=== PATIENT | female | born 1985 | race Caucasian/White ===

== ENCOUNTER → 2018-08-26 08:23 | Outpatient (CLI) | payer OTHER, SELFPAY | PROVIDERS: Visit Provider Physician Assistant | DX: R68.89 Other general symptoms and signs (principal) | CPT/HCPCS: 87400 ==

== ENCOUNTER → 2020-04-13 08:09 | Outpatient (CLI) | payer OTHER, SELFPAY ==
[2020-04-13 11:02] LABS: Hematocrit 42.8 % (36-46); Hemoglobin 14.5 g/dL (12.0-16.0); Mean Corpuscular HGB Conc 33.9 % (30-36); Mean Corpuscular Hemoglobin 30.1 PG (26-34); Mean Corpuscular Volume 88.8 fL (80-100); Red Blood Cell Count 4.82 X10^6/uL (4.0-5.2); Red Cell Distribution Width 13.6 % (11.6-14.8); White Blood Cell Count 5.8 X10^3/uL (4.5-11.0)
[2020-04-13 11:20] LABS: Alanine Aminotransferase 40 IU/L (<35); Albumin 4.5 g/dL (3.5-5.0); Albumin Globulin Ratio 1.4 (1.0-2.8); Alkaline Phosphatase 62 U/L (38-126); Aspartate Aminotransferase 32 IU/L (14-36); BUN Creatinine Ratio 18.7 (6-22); Bilirubin Total 0.8 mg/dL (0.2-1.3); Blood Urea Nitrogen 14 mg/dL (7-17); Carbon Dioxide 29 mmol/L (22-32); Chloride 103 mmol/L (98-107); Cholesterol 171 mg/dL (140-199); Estimated Glomerular Filt Rate > 60.0 mL/min (>60); Globulin 3.2 g/dL (1.7-4.1); Glucose 84 mg/dL (70-100); HDL Cholesterol 55 mg/dL (40-60); HEMOLYSIS 33 (0-50); LDL Cholesterol Calculated 100 mg/dL (<100); Potassium 4.3 mmol/L (3.4-5.1); Sodium 138 mmol/L (137-145); Total Protein 7.7 g/dL (6.3-8.2); Triglycerides 80 mg/dL (35-150)
[2020-04-13 11:30] LABS: Platelet Count 217 X10^3/uL (150-400)
== END ==
PROVIDERS: PCP Nurse Practitioner Family; Referring Provider Nurse Practitioner Family; Visit Provider Nurse Practitioner Family
DX: Z00.00 Encounter for general adult medical examination without abnormal findings (principal); Z13.6 Encounter for screening for cardiovascular disorders
CPT/HCPCS: 36415; 80053; 80061; 85027

== ENCOUNTER 2020-04-17 07:05 | Emergency (ER) | payer OTHER, SELFPAY ==
--- NOTE | 2020-04-17 07:20 | DI.RAD.S_ITS ---
PROCEDURE: XR ANKLE LT MIN 3V INDICATIONS: twisted ankle TECHNIQUE: 3 views of the ankle were acquired. COMPARISON: M[facility]ed [facility], CR, XR ANKLE RT MIN 3V, 04/17/2020, 7:44. FINDINGS: Bones: No fractures or dislocations. Ankle mortise is normally aligned. No suspicious bony lesions. The talar dome demonstrates no pj abnormality. Incidental note is made of an enthesophyte at the Achilles insertion. Soft tissues: No tibiotalar joint effusion. Achilles tendon appears normal. IMPRESSION: No significant plain film abnormality is seen. Dictated by: Ander Hannah M.D. on 04/17/2020 at 7:19 Approved by: Ander Hannah M.D. on 04/17/2020 at 7:20
[2020-04-17 07:23] VITALS: BP 152/100; PULSE 83; RESP 18; TEMP 36.8; O2SAT 97
--- NOTE | 2020-04-17 07:37 | ED_ITS ---
HPI - Extremity Injury (Lower) General Chief Complaint: Extremity Injury, Lower Stated Complaint: suspects fractured ankles Time Seen by Provider: 04/17/20 07:34 Source: patient Mode of arrival: Family Vehicle Limitations: no limitations History of Present Illness HPI Narrative: Otherwise healthy 34-year-old woman presents after jumping off an approximately 1-1/2 foot ledge last night at 9:00 p.m. and suffering inversion ankle injuries bilaterally. She did have pain initially but was able to walk assumed that she would feel better in the morning but when she got up this morning she found that she was not able to put any pressure at all on her left foot and the right was significantly painful. Minor swelling bilaterally. She complains of no ankle or hip pain and no additional trauma complaints. She rece ntly has had no fevers, cough, chills, dyspnea, cough, abdominal pain, diarrhea, vomiting, dysuria. Related Data Home Medications Medication Instructions Recorded Confirmed No Known Home Medications 04/02/20 04/02/20 Previous Rx's Medication Instructions Recorded ciclopirox 8 % topical solution 1 applictn TOP BEDTIME 28 Days 04/02/20 #6.6 ml Allergies Allergy/AdvReac Type Severity Reaction Status Date / Time No Known Drug Allergies Allergy Verified 04/17/20 07:21 Review of Systems Review of Systems Narrative: Remainder of review of systems including constitutional, ENT, cardiovascular, respiratory, GI, , musculoskeletal, skin, neurologic and psychiatric systems reviewed and are unremarkable except as noted in HPI. Patient History Medical History Allergies (~1999) Onychomycosis Surgical History Anesthesia [place] teeth removed (~2001) Family History Father Cancer Diabetes mellitus Mother Cancer Grandfather Stroke Grandmother Diabetes mellitus Grandfather Cancer Grandmother Cancer Family/Other Asthma Allergies Social History Smoking Status: Never smoker second hand exposure: No alcohol intake: current (a couple a week) substance use type: marijuana (smoke, a few times a week) Smoking Status: Never smoker alcohol intake frequency: 0-2 drinks per day Substance Use Type: marijuana Exam Narrative Exam Narrative: General: Alert appropriate in no acute distress Respiratory: Able to speak in full sentences, no obvious respiratory distress Skin: No obvious rashes, warm and dry Neurologic: Grossly intact no obvious asymmetries or abnormalities Psych, appropriate insight and affect, cooperative Extremities: Left ankle with point tenderness on the medial malleoli, mild edema, no hematoma, bruising contusions or gross deformity. Right ankle with point tenderness on the lateral malleolus mild edema, no hematoma, bruising contusions or gross deformity. Initial Vital Signs Initial Vital Signs: Vital Signs Temperature 98.3 F 04/17/20 07:23 Pulse Rate 83 04/17/20 07:23 Respiratory Rate 18 04/17/20 07:23 Blood Pressure 152/100 H 04/17/20 07:23 Pulse Oximetry 97 04/17/20 07:23 Procedures Orthopedic Splinting/Casting Right ankle: Side: right Lower Extremity Injury Location: ankle Lower Extremity Immobilizer: stirrup splint and [place] wrap Other Orthopedic Equipment: walker Post splinting neuro exam: intact Post splinting vascular exam: intact Placed by: Provider Left ankle: Side: left Lower Extremity Injury Location: ankle Lower Extremity Immobilizer: stirrup splint and Aureliano wrap Other Orthopedic Equipment: walker Post splinting neuro exam: intact Post splinting vascular exam: intact Placed by: Provider Course Orders Ordered: ED Orders 04/17/20 07:20 XR ankle LT min 3V Stat 04/17/20 07:42 XR ankle RT min 3V Stat Discontinued Medications Acetaminophen (Acetaminophen 325 Mg Tablet) 325 mg PO NOW ONE Stop: 04/17/20 07:55 Last Admin: 04/17/20 07:59 Dose: 325 mg Documented by: Ibuprofen (Ibuprofen 400 Mg Tablet) 400 mg PO NOW ONE Stop: 04/17/20 07:55 Last Admin: 04/17/20 07:59 Dose: 400 mg Documented by: Vital Signs Vital signs: Vital Signs - 8 hr 04/17/20 07:23 Temperature 98.3 F Pulse Rate 83 Respiratory Rate 18 Blood Pressure 152/100 H Pulse Oximetry 97 MDM - Extremity Injury (Lower) Medical Records Attestation: I reviewed the patient's medical records. Imaging Data Bilateral ankle x-rays: Attestation: I personally reviewed and interpreted this imaging study as follows: My Impression: No acute bony injury to either ankle, minimal effusions. MDM Narrative Medical decision making narrative: 34-year-old woman who jumped off a ledge twisted both ankles hurting more after 12 hours. No evidence of fractures on x- rays. Will contact her if radiology has a different interpretation once they have had a chance to look at the films. No point tenderness over the heel for either foot to suggest any calcaneal injury. Wraps are applied and she is given a walker to help with stability and discharged home safely. Discharge Plan Departure Patient Disposition: Home Clinical Impression: Ankle sprain and strain Instructions: DI for Ankle Sprain Activity Restrictions/Additional Instructions: Thank you for coming in today I am so sorry you hurt both ankles at the same time, this could be a frustrating couple of days for you. Fortunately, they are sprained and not broken. I have Aureliano wrapped both and given you ankle splints for both. Ice will be helpful and using 400 mg of ibuprofen (2 tonk-hif-rqedrzi pills) and 1 Tylenol every 6 hours can be very helpful in controlling pain. Keep her ankles elevated as much as possible to help avoid swelling. Please rec ognize that they likely will hurt more tomorrow as a routine part of healing. If you have of other complaints concerns or issues please feel free to return to the emergency department. I hope you heal quickly Prescriptions: No Action No Known Home Medications RF: 0 ciclopirox 8 % solution 1 applictn TOP BEDTIME 28 Days Qty: 6.6 RF: 3 Referrals: Petra Phillips ARNP [Primary Care Provider] -
--- NOTE | 2020-04-17 07:42 | DI.RAD.S_ITS ---
PROCEDURE: XR ANKLE RT MIN 3V INDICATIONS: pain, trauma TECHNIQUE: 3 views of the ankle were acquired. COMPARISON: [facility], CR, XR ANKLE LT MIN 3V, 04/17/2020, 7:36. FINDINGS: Bones: No fractures or dislocations. Ankle mortise is normally aligned. No suspicious bony lesions. Incidental note is made of an enthesophyte at the Achilles insertion. The talar dome demonstrates no pj abnormality. Soft tissues: No tibiotalar joint effusion. Achilles tendon appears normal. IMPRESSION: Unremarkable right ankle films. Dictated by: Ander Hannah M.D. on 04/17/2020 at 7:21 Approved by: Ander Hannah M.D. on 04/17/2020 at 7:21
[2020-04-17] MEDS: IBUPROFEN 400 MG TABLET PO (07:59)
[2020-04-17] MEDS: ACETAMINOPHEN 325 MG TABLET PO (07:59)
--- NOTE | 2020-04-17 08:22 | PC.NURSE ---
Dr Elmore applied bilateral lillian wraps and air splints.
[2020-04-17 08:24] VITALS: BP 126/79; PULSE 72; RESP 16; O2SAT 100
--- NOTE | 2020-04-17 08:24 | PC.NURSE ---
bilateral air splints
--- NOTE | 2020-04-17 08:25 | PC.NURSE ---
Patient fit for walker.
== END 2020-04-17 08:25 | disposition home or self-care (01) ==
PROVIDERS: Emergency Provider Emergency Medicine; PCP Nurse Practitioner Family
DX: S93.402A Sprain of unspecified ligament of left ankle, initial encounter (principal); S93.401A Sprain of unspecified ligament of right ankle, initial encounter; S96.911A Strain of unspecified muscle and tendon at ankle and foot level, right foot, initial encounter; S96.912A Strain of unspecified muscle and tendon at ankle and foot level, left foot, initial encounter
CPT/HCPCS: 73610; 99283

== ENCOUNTER → 2023-11-02 15:06 | Outpatient (CLI) | payer OTHER, SELFPAY ==
--- NOTE | 2023-11-02 15:07 | DI.RAD.S_ITS ---
PROCEDURE: XR KNEE LT 3V INDICATIONS: rule out meniscal injury TECHNIQUE: 3 views of the knee were acquired. COMPARISON: None. FINDINGS: Bones: No fractures or dislocations. No suspicious bony lesions. Soft tissues: Small joint effusion. No suspicious soft tissue calcifications. IMPRESSION: No acute osseous abnormality. Small joint effusion. If pain persists with conservative management, consider repeat x-ray in 10-14 days or cross-sectional imaging. Dictated by: James Dee M.D. on 11/02/2023 at 15:53 Approved by: James Dee M.D. on 11/02/2023 at 16:03
== END ==
PROVIDERS: PCP Family Medicine; Referring Provider Family Medicine; Visit Provider Family Medicine
DX: M25.462 Effusion, left knee (principal); M25.569 Pain in unspecified knee
CPT/HCPCS: 73562

== ENCOUNTER → 2023-11-26 18:40 | Outpatient (CLI) | payer OTHER, SELFPAY ==
[2023-11-26 20:28] LABS: Urine N gonorrhoeae NOT DETECTED
[2023-11-26 20:35] LABS: Urine Chlamydia NOT DETECTED
== END ==
PROVIDERS: PCP Family Medicine; Visit Provider Nurse Practitioner Family
DX: R30.0 Dysuria (principal)
CPT/HCPCS: 87086; 87491; 87591

== ENCOUNTER 2024-06-24 08:42 | Emergency (ER) | payer OTHER, SELFPAY ==
--- NOTE | 2024-06-24 09:14 | DI.RAD.S_ITS ---
PROCEDURE: XR ABDOMEN MIN 2V INDICATIONS: constipation TECHNIQUE: 2 views of the abdomen were acquired. COMPARISON: None. FINDINGS: Surgical changes and devices: None. Bowel: No pneumoperitoneum. The bowel gas pattern is normal. Mild fecal stasis in the colon is seen. Soft tissues: No masses; visualized solid organ contours appear normal in size. No suspicious abdominal calcifications. Bones: No suspicious bony abnormalities. IMPRESSION: Nonobstructive bowel gas pattern. Mild fecal stasis in the colon. No gross free air. Dictated by: Pardeep Madden M.D. on 06/24/2024 at 9:35 Approved by: Pardeep Madden M.D. on 06/24/2024 at 9:35
[2024-06-24 09:17] VITALS: BP 127/92; PULSE 97; RESP 16; TEMP 36.6; O2SAT 98; BMI 29.0
--- NOTE | 2024-06-24 09:50 | ED.ABDPAIN ---
HPI - Abdominal Pain General Chief Complaint: Abdominal Pain Stated Complaint: per pt possible intestinal blockage Time Seen by Provider: 06/24/24 09:50 Source: patient, RN notes reviewed and old records reviewed Mode of arrival: Family Vehicle Limitations: no limitations History of Present Illness HPI narrative: 38-year-old female reports no bowel movements for the past 7 days has tried enemas, stool softeners but notes feeling distended with discomfort. No nausea or vomiting. Patient states no fevers or chills. No chest pain or shortness of breath. States no bowel movement since last Sunday. States she is passed some flatus but minimally. Denies any dysuria urgency or frequency. Has not had similar issues in the past. Patient states she was not on any daily medications. No prior surgeries. No known drug allergies. Has not had chronic issues with constipation. Patient denies any regular tobacco, occasional alcohol, no recreational drugs. States she has not had any narcotics or other medications that she would slow down her gut. She has tried MiraLax daily since Sunday, additional xbsf-ozd-lpcaned medications yesterday, enemas without any improvement. She notes it feels like it is higher up more in the epigastric or above the periumbilical area. She states it also feels sort of numb across her belly. Related Data Home Medications Medication Instructions Recorded Confirmed ibuprofen 200 mg tablet 600 mg PO BID PRN 04/20/20 11/26/23 Previous Rx's Medication Instructions Recorded doxycycline hyclate 100 mg capsule 100 mg PO BID #14 caps 11/26/23 dicyclomine 10 mg capsule 10 mg PO QID PRN abdominal pain 06/24/24 #20 caps Allergies Allergy/AdvReac Type Severity Reaction Status Date / Time No Known Drug Allergies Allergy Verified 06/24/24 09:24 Review of Systems Review of Systems ROS Unobtainable: All systems reviewed & are unremarkable except as noted in HPI and below Patient History Medical History Fractures Encounter for wellness examination in adult Encounter for routine gynecological examination Allergies (~1999) Onychomycosis Surgical History Anesthesia [place] teeth removed (~2001) Family History Father Cancer Diabetes mellitus Multiple sclerosis Mother Cancer Grandfather Stroke Grandmother Diabetes mellitus Grandfather Cancer Grandmother Cancer Family/Other Asthma Allergies Social History Smoking Status: Never smoker second hand exposure: No alcohol intake: current (a couple a week) substance use type: marijuana (smoke, a few times a week) Smoking Status: Never smoker tobacco type: cigarettes alcohol intake frequency: 0-2 drinks per day Exam Narrative Exam Narrative: GENERAL: Alert and oriented x three, female in mild distress dress. HEENT: Head normocephalic, atraumatic, EOMI, pupils reactive, face symmetric, moist mucous membranes NECK: Supple, full range of motion CARDIOVASCULAR: Regular rate and rhythm without murmurs, rubs or gallops. RESPIRATORY: Breath sounds equal bilaterally, no wheezes rales or rhonchi. ABDOMEN: Soft, patient is mildly tender diffusely through the abdomen. Moderately distended. Normoactive bowel sounds all 4 quadrants. No guarding or rebound, rigidity, no mass : No CVA tenderness EXTREMITIES: Normal range of motion, no clubbing or edema. Neurovascularly intact NEUROLOGICAL: Cranial nerves II through XII grossly intact. Moving all extremities SKIN: Warm, dry, no petechiae, no rashes or lesions. Initial Vital Signs Initial Vital Signs: Vital Signs Temperature 97.9 F 06/24/24 09:17 Pulse Rate 97 H 06/24/24 09:17 Respiratory Rate 16 06/24/24 09:17 Blood Pressure 127/92 H 06/24/24 09:17 Pulse Oximetry 98 06/24/24 09:17 Oxygen Delivery Method Room Air 06/24/24 09:17 Course Orders Ordered: ED Orders 06/24/24 09:37 EKG-12 Lead Stat 06/24/24 09:50 Complete Blood Count AUTO DIFF Stat Comprehensive Metabolic Panel Stat Lipase Stat 06/24/24 10:05 CT abdomen pelvis w con Stat Discontinued Medications Sodium Chloride (Normal Saline 0.9%) 1,000 mls @ 1,000 mls/hr IV BOLUS ONE Stop: 06/24/24 11:05 Last Infusion: 06/24/24 11:22 Dose: Infused Documented By: Admin: 06/24/24 10:23 Dose: 1,000 mls/hr Documented By: DOMI Ketorolac Tromethamine (Ketorolac 30 Mg/Ml Vial) 15 mg IV NOW ONE Stop: 06/24/24 10:06 Last Admin: 06/24/24 10:22 Dose: 15 mg Documented By: DOMI Magnesium Citrate (Magnesium Citrate 300 Ml Solution) 300 ml PO NOW ONE Stop: 06/24/24 11:27 Last Admin: 06/24/24 11:42 Dose: 300 ml Documented By: DOMI Ondansetron HCl (Ondansetron 4 Mg/2 Ml Inj) 4 mg IV NOW PRN PRN Reason: Nausea And Vomiting Ondansetron HCl (Ondansetron 4 Mg Odt) 4 mg PO NOW PRN PRN Reason: Nausea And Vomiting Vital Signs Vital signs: Vital Signs - 8 hr 06/24/24 10:21 06/24/24 10:21 06/24/24 10:36 Pulse Rate 65 Respiratory Rate 18 Blood Pressure 134/88 140/86 Pulse Oximetry 100 Oxygen Delivery Method Room Air 06/24/24 10:36 06/24/24 11:00 06/24/24 11:00 Pulse Rate 72 55 L Respiratory Rate 18 Blood Pressure 122/77 Pulse Oximetry 98 99 Oxygen Delivery Method Room Air 06/24/24 11:30 06/24/24 11:30 Pulse Rate 62 Respiratory Rate 18 Blood Pressure 123/82 Pulse Oximetry 100 Oxygen Delivery Method MDM - Abdominal Pain Lab Data 06/24/24 09:50 06/24/24 09:50 Labs: Lab Results 06/24/24 Range/Units 09:50 WBC 7.0 (4.5-11.0) X10^3/uL RBC 4.84 (4.0-5.2) X10^6/uL Hgb 14.8 (12.0-16.0) g/dL Hct 43.2 (36-46) % MCV 89.3 (80-100) fL MCH 30.7 (26-34) PG MCHC 34.4 (30-36) % RDW 12.7 (11.6-14.8) % Plt Count 229 (150-400) X10^3/uL Neut % (Auto) 72.0 (50-75) % Lymph % (Auto) 20.1 L (25-40) % [place] % (Auto) 6.0 (3-14) % Eos % (Auto) 1.5 L (2-4) % Baso % (Auto) 0.4 (0-2) % Neut # (Auto) 5000 (6962-8408) /uL Lymph # (Auto) 1400 (3281-7607) /uL [place] # (Auto) 400 (0-900) /uL Eos # (Auto) 100 (0-450) /uL Baso # (Auto) 0 (0-100) /uL Sodium 137 (137-145) mmol/L Potassium 4.0 (3.4-5.1) mmol/L Chloride 102 (98-107) mmol/L Carbon Dioxide 23 (22-32) mmol/L BUN 12 (7-17) mg/dL Creatinine 0.80 (0.52-1.04) mg/dL Estimated GFR > 60 (>60) mL/min BUN/Creatinine Ratio 15.0 (6-22) Glucose 90 (70-100) mg/dL Calcium 9.6 (8.4-10.2) mg/dL Total Bilirubin 1.1 (0.2-1.3) mg/dL AST 42 H (14-36) IU/L ALT 62 H (<35) IU/L Alkaline Phosphatase 71 (38-126) U/L Total Protein 8.4 H (6.3-8.2) g/dL Albumin 4.9 (3.5-5.0) g/dL Globulin 3.5 (1.7-4.1) g/dL Albumin/Globulin Ratio 1.4 (1.0-2.8) Lipase 46 (23-300) U/L Point of care testing: Point of Care Testing Test Results Negative Urine Dip Bedside Urine Glucose Negative Bedside Urine Bilirubin - Negative Bedside Urine Ketone ++ 40 Urine Specific [place] 1.015 Bedside Urine Occult Blood - Negative Bedside Urine pH 6.0 Bedside Urine Protein - Negative Bedside Urine Urobilinogen - Negative Bedside Urine Nitrite - Negative Bedside Urine Leukocytes - Negative Esterase Imaging Data CT scan - abdomen/pelvis: Radiologist's Impression: Close Abdomen/Pelvis CT (Signed) Pardeep Madden - 06/24/24 Abdomen X-Ray (Signed) Pardeep Madden - 06/24/24 Knee X-Ray (Signed) James Dee - 11/02/23 Ankle X-Ray (Signed) Ander Hannah - 04/17/20 Ankle X-Ray (Signed) Ander Hannah - 04/17/20 Launch?Image [address] [address] [address] Scan Report Signed Patient: Aretha Stevens MR#: [id number] : 1985 Acct:[id number] Age/Sex: 38 / F Date of Service: 06/24/24 Loc: ED Accession Number: [id number] Procedure: CT abdomen pelvis w con Ordering Provider: Rosie Phillips D.O. PROCEDURE: CT ABDOMEN PELVIS W CON INDICATIONS: abd distention, no BM x 7 days, feels epigstric area TECHNIQUE: After the administration of intravenous contrast, axial sections acquired from the lung bases to the pubic symphysis. Coronal and sagittal reformats were performed. For radiation dose reduction, the following was used: automated exposure control, adjustment of mA and/or kV according to patient size. COMPARISON: [facility], CR, XR ABDOMEN MIN 2V, 06/24/2024, 9:18. FINDINGS: Image quality: Diagnostic. Lower Chest: No significant findings. ABDOMEN: Liver: No solid mass. Moderate hepatic steatosis is seen. Gallbladder: No radiopaque gallstones or wall thickening. Biliary ducts: No biliary dilation. Pancreas: No ductal dilation. Spleen: Size is within normal limits. Adrenal Glands: No adrenal nodules. Kidneys and Ureters: No hydronephrosis. No solid mass. No complex renal cystic lesion which requires follow up. Stomach and Bowel: There is no bowel obstruction. No gastric or small bowel wall thickening. Appendix is visualized in right lower quadrant and is normal in size and appearance. No gross colonic wall thickening. No abscess collection. Peritoneum: No abnormal intraperitoneal fluid. No free air. Ventral Wall: No significant ventral hernia. Abdominal Nodes: No retroperitoneal or mesenteric adenopathy by size criteria. Vessels: Aorta and inferior vena cava are normal in size. PELVIS: Pelvic Organs: Unremarkable. Bladder: No bladder wall thickening, accounting for underdistention. Pelvic Nodes: No enlarged lymph nodes. Miscellaneous: No inguinal hernias are seen. Bones: No aggressive osseous abnormality. IMPRESSION: 1. No evidence of bowel obstruction or abnormal bowel wall thickening. Normal appendix. No free fluid or free air. 2. Moderate hepatic steatosis, no discrete hepatic lesion. Normal appearing gallbladder. No biliary ductal dilatation. Dictated by: Pardeep Madden M.D. on 06/24/2024 at 10:46 Approved by: Pardeep Madden M.D. on 06/24/2024 at 10:52 ECG Data Attestation: I personally reviewed and interpreted this ECG as follows: Prior ECG tracings: not available for review Interpretation: Sinus bradycardia incomplete right bundle-branch rate of 59 CA 148 QRS of 98 QTC of 411. No prior for comparison. MDM Narrative Medical decision making narrative: 38-year-old female with what sounds like constipation, initial x-ray shows no acute change there discussion patient states feel like it is more high up more in the epigastric area not so much in her lower abdomen she was tried multiple medications to help with bowel movements she has had no other additional symptoms no other red flag symptoms but notes that her belly feels numb across the abdomen. Discussed risks versus benefits of further workup versus trying some additional medications for constipation. After discussion elects to obtain labs and additional imaging. Labs show normal white count hemoglobin and platelets, electrolytes are normal AST is 42 ALT 62 bilirubin is 1.1 lipase is 46. Urine is negative. Point of care urine is negative. CT abdomen pelvis shows no evidence of bowel obstruction or abnormal bowel wall thickening normal appendix no free fluid or free air moderate hepatic steatosis no discrete hepatic lesion normal-appearing gallbladder no biliary ductal dilation. EKG shows sinus bradycardia incomplete right bundle-branch. Patient received 1 L normal saline and Toradol IV. Patient feels improved after this. Discussed findings from today patient reviewed her findings hepatic steatosis her lab findings as well, no signs of bowel obstruction no large fecal bolus is present. Discussed with patient we will give a short course of Bentyl she notes she has not really been eating any solids for the last 3 days but has been drinking fluids. We will have her continue to hydrate regularly, discussed there is not a lot of stool so she should start to eat solids again or she probably will not have much output. Discharge Plan Departure Patient Disposition: Home Clinical Impression: Hepatic steatosis, Constipation Instructions: DI for Abdominal Pain-Adult Activity Restrictions/Additional Instructions: Please follow up for recheck for your abdominal pain. You can take Bentyl 1 tablet every 8 hours as needed for discomfort. Continue to make sure you are hydrating regularly. You can drink 1/2 bottle of the magnesium citrate if it is not improving your symptoms after 4-6 hours you can drink the 2nd half of the bottle. Please return for fevers, worsening abdominal back or flank pain, vomiting, black or bloody stools, if you are not having bowel movements or passing flatus or other new or concerning changes. Prescriptions: New dicyclomine 10 mg capsule 10 mg PO QID PRN (Reason: abdominal pain) Qty: 20 0RF No Action doxycycline hyclate 100 mg capsule 100 mg PO BID Qty: 14 0RF ibuprofen 200 mg tablet 600 mg PO BID PRN Referrals: Lexii Winchester MD [Primary Care Provider] - Stand Alone Forms: Patient Portal/API/Survey
--- NOTE | 2024-06-24 10:05 | DI.CT.S_ITS ---
PROCEDURE: CT ABDOMEN PELVIS W CON INDICATIONS: abd distention, no BM x 7 days, feels epigstric area TECHNIQUE: After the administration of intravenous contrast, axial sections acquired from the lung bases to the pubic symphysis. Coronal and sagittal reformats were performed. For radiation dose reduction, the following was used: automated exposure control, adjustment of mA and/or kV according to patient size. COMPARISON: [facility], , XR ABDOMEN MIN 2V, 06/24/2024, 9:18. FINDINGS: Image quality: Diagnostic. Lower Chest: No significant findings. ABDOMEN: Liver: No solid mass. Moderate hepatic steatosis is seen. Gallbladder: No radiopaque gallstones or wall thickening. Biliary ducts: No biliary dilation. Pancreas: No ductal dilation. Spleen: Size is within normal limits. Adrenal Glands: No adrenal nodules. Kidneys and Ureters: No hydronephrosis. No solid mass. No complex renal cystic lesion which requires follow up. Stomach and Bowel: There is no bowel obstruction. No gastric or small bowel wall thickening. Appendix is visualized in right lower quadrant and is normal in size and appearance. No gross colonic wall thickening. No abscess collection. Peritoneum: No abnormal intraperitoneal fluid. No free air. Ventral Wall: No significant ventral hernia. Abdominal Nodes: No retroperitoneal or mesenteric adenopathy by size criteria. Vessels: Aorta and inferior vena cava are normal in size. PELVIS: Pelvic Organs: Unremarkable. Bladder: No bladder wall thickening, accounting for underdistention. Pelvic Nodes: No enlarged lymph nodes. Miscellaneous: No inguinal hernias are seen. Bones: No aggressive osseous abnormality. IMPRESSION: 1. No evidence of bowel obstruction or abnormal bowel wall thickening. Normal appendix. No free fluid or free air. 2. Moderate hepatic steatosis, no discrete hepatic lesion. Normal appearing gallbladder. No biliary ductal dilatation. Dictated by: Pardeep Madden M.D. on 06/24/2024 at 10:46 Approved by: Pardeep Madden M.D. on 06/24/2024 at 10:52
--- NOTE | 2024-06-24 10:11 | EKG_ITS ---
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
[2024-06-24 10:13] LABS: Add Manual Diff / Slide Review NO; Basophils Absolute Auto 0 /uL (0-100); Basophils Percent Auto 0.4 % (0-2); Eosinophils Absolute Auto 100 /uL (0-450); Eosinophils Percent Auto 1.5 % (2-4); Hematocrit 43.2 % (36-46); Hemoglobin 14.8 g/dL (12.0-16.0); Lymphocytes Absolute Auto 1400 /uL (1100-4500); Lymphocytes Percent Auto 20.1 % (25-40); Mean Corpuscular HGB Conc 34.4 % (30-36); Mean Corpuscular Hemoglobin 30.7 PG (26-34); Mean Corpuscular Volume 89.3 fL (80-100); Monocytes Absolute Auto 400 /uL (0-900); Neutrophils Absolute Auto 5000 /uL (1500-7000); Platelet Count 229 X10^3/uL (150-400); Red Blood Cell Count 4.84 X10^6/uL (4.0-5.2); Red Cell Distribution Width 12.7 % (11.6-14.8)
[2024-06-24 10:21] VITALS: BP 134/88; PULSE 65; RESP 18; O2SAT 100
[2024-06-24 10:21] LABS: Alanine Aminotransferase 62 IU/L (<35); Albumin 4.9 g/dL (3.5-5.0); Albumin Globulin Ratio 1.4 (1.0-2.8); Alkaline Phosphatase 71 U/L (38-126); Aspartate Aminotransferase 42 IU/L (14-36); Bilirubin Total 1.1 mg/dL (0.2-1.3); Blood Urea Nitrogen 12 mg/dL (7-17); Calcium 9.6 mg/dL (8.4-10.2); Carbon Dioxide 23 mmol/L (22-32); Chloride 102 mmol/L (98-107); Estimated Glomerular Filt Rate > 60 mL/min (>60); Globulin 3.5 g/dL (1.7-4.1); Glucose 90 mg/dL (70-100); HEMOLYSIS < 15 (0-50); Lipase 46 U/L (23-300); Sodium 137 mmol/L (137-145); Total Protein 8.4 g/dL (6.3-8.2)
[2024-06-24] MEDS: KETOROLAC 30 MG/ML VIAL 15 MG IV (10:22)
[2024-06-24] MEDS: SODIUM CHLORIDE 0.9% 1,000 ML 1000 ML IV (10:23)
[2024-06-24 10:36] VITALS: BP 140/86; PULSE 72; O2SAT 98
[2024-06-24 11:00] VITALS: BP 122/77; PULSE 55; RESP 18; O2SAT 99
[2024-06-24 11:30] VITALS: BP 123/82; PULSE 62; RESP 18; O2SAT 100
[2024-06-24] MEDS: MAGNESIUM CITRATE 300 ML SOLUTION PO (11:42)
== END 2024-06-24 11:47 | disposition home or self-care (01) ==
PROVIDERS: Emergency Provider Emergency Medicine; PCP Family Medicine
DX: K59.00 Constipation, unspecified (principal); K76.0 Fatty (change of) liver, not elsewhere classified; R00.1 Bradycardia, unspecified; I45.10 Unspecified right bundle-branch block
CPT/HCPCS: 36415; 74019; 74177; 80053; 81003; 81025; 83690; 85025; 93005; 96361; 96374; 99284; 99285; J1885; Q9967

== ENCOUNTER 2024-07-18 16:45 | Emergency (ER) | payer OTHER, SELFPAY ==
[2024-07-18 17:08] VITALS: BP 151/78; PULSE 67; RESP 17; TEMP 36.6; O2SAT 98; BMI 27.8
--- NOTE | 2024-07-18 17:27 | DI.MRI.S_ITS ---
PROCEDURE: MR LUMBAR SPINE WO/W CON INDICATIONS: worsening leg weakness TECHNIQUE: Noncontrast sagittal T1 spin echo and T2 fast spin echo, sagittal STIR, axial T1 and T2 fast spin echo through the lumbar spine. In cases with scoliosis, additional coronal T2 fast spin echo may be performed. After the administration of contrast, sagittal and axial T1 spin echo with fat saturation through the lumbar spine. COMPARISON: [facility], CT, CT ABDOMEN PELVIS W CON, 06/24/2024, 10:27. FINDINGS: Image quality: Diagnostic Alignment and curvature: There is normal bony alignment. Marrow: No acute fracture. No suspicious osseous enhancement. L4-L5 disc space desiccation. Suspected focal fatty marrow versus focal Modic changes at the inferior endplate of L4. Spinal cord: Cord terminates in normal position. [place] nerve roots appear unremarkable. Paraspinous soft tissues: No suspicious paraspinal abscess or mass identified T12-L1: Mild facet arthropathy. No stenosis. L1-L2: Mild diffuse disc bulge and facet arthropathy. No stenosis. L2-L3: Small diffuse disc bulge. Mild facet arthropathy. No stenosis. L3-L4: Small diffuse disc bulge. Rqkm-tq-bxipuoid facet arthropathy. No stenosis. L4-L5: Central protrusion, rzzm-sl-utdeixdt, with annular fissure. Moderate facet arthropathy. Superimposed disc bulge. Ejzx-yp-qsjhuaph central narrowing affecting both subarticular recesses. Mild bilateral neural foraminal narrowing. L5-S1: Small central disc protrusion and superimposed disc bulge. Kvlt-wt-nidiqtqe facet arthropathy. No stenosis. IMPRESSION: No acute fracture. No traumatic subluxation. No suspicious areas of enhancement. Ratn-li-ywefaayy areas of spondylotic changes described above, worst at L4-L5. Dictated by: Victor Hugo Regalado M.D. on 07/18/2024 at 19:42 Approved by: Victor Hugo Regalado M.D. on 07/18/2024 at 19:46
[2024-07-18 22:30] LABS: Add Manual Diff / Slide Review NO; Basophils Absolute Auto 100 /uL (0-100); Basophils Percent Auto 0.9 % (0-2); Eosinophils Absolute Auto 300 /uL (0-450); Eosinophils Percent Auto 3.8 % (2-4); Hematocrit 44.3 % (36-46); Hemoglobin 15.4 g/dL (12.0-16.0); Lymphocytes Absolute Auto 2300 /uL (1100-4500); Lymphocytes Percent Auto 33.1 % (25-40); Mean Corpuscular HGB Conc 34.7 % (30-36); Mean Corpuscular Hemoglobin 30.9 PG (26-34); Mean Corpuscular Volume 88.9 fL (80-100); Monocytes Absolute Auto 400 /uL (0-900); Monocytes Percent Auto 5.9 % (3-14); Neutrophils Absolute Auto 3900 /uL (1500-7000); Neutrophils Percent Auto 56.3 % (50-75); Platelet Count 211 X10^3/uL (150-400); Red Blood Cell Count 4.98 X10^6/uL (4.0-5.2); Red Cell Distribution Width 13.5 % (11.6-14.8)
[2024-07-18 22:41] LABS: Alanine Aminotransferase 53 IU/L (<35); Albumin Globulin Ratio 1.6 (1.0-2.8); Alkaline Phosphatase 60 U/L (38-126); Aspartate Aminotransferase 33 IU/L (14-36); BUN Creatinine Ratio 18.2 (6-22); Bilirubin Total 0.7 mg/dL (0.2-1.3); Blood Urea Nitrogen 14 mg/dL (7-17); Calcium 9.6 mg/dL (8.4-10.2); Carbon Dioxide 26 mmol/L (22-32); Chloride 104 mmol/L (98-107); Estimated Glomerular Filt Rate > 60 mL/min (>60); Globulin 3.1 g/dL (1.7-4.1); Glucose 113 mg/dL (70-100); HEMOLYSIS < 15 (0-50); Lipase 60 U/L (23-300); Potassium 3.9 mmol/L (3.4-5.1); Sodium 141 mmol/L (137-145); Total Protein 8.1 g/dL (6.3-8.2)
[2024-07-19 01:42] VITALS: BP 123/87; PULSE 70; O2SAT 96
--- NOTE | 2024-07-19 01:45 | ED.BACK ---
HPI - Back Pain/Injury General Chief Complaint: Abdominal Pain Stated Complaint: intestional blockage, pressing on spine Time Seen by Provider: 07/19/24 01:44 Source: patient History of Present Illness HPI Narrative: 39-year-old female complains of ongoing left upper abdominal discomfort of unclear cause, also left lower back pain of unclear cause, reports previous CT scan imaging of her abdomen and pelvis after which she was prescribed stool softener medications, she has taken ibuprofen in the past, more recently taking gabapentin and dicyclomine from her regular doctor. She also has left lower leg pain, no injury recalled. She has a sensation of a ?brick like? sensation left upper quadrant abdomen. She is not taking any antacid medications. No black or red stools. No nausea or vomiting, no painful urination. No injury or trauma. No prior back surgeries. No prior abdominopelvic surgeries. Related Data Home Medications Medication Instructions Recorded Confirmed ibuprofen 200 mg tablet 600 mg PO BID PRN 04/20/20 11/26/23 Previous Rx's Medication Instructions Recorded doxycycline hyclate 100 mg capsule 100 mg PO BID #14 caps 11/26/23 gabapentin 300 mg capsule 300 mg PO TID #30 caps 07/17/24 methocarbamol 500 mg tablet 500 mg PO TID 7 days #21 tabs 07/19/24 omeprazole 20 mg capsule,delayed 20 mg PO DAILY upper abdominal 07/19/24 release pain 30 days #30 caps Allergies Allergy/AdvReac Type Severity Reaction Status Date / Time No Known Drug Allergies Allergy Verified 07/18/24 17:14 Patient History Medical History (Updated 07/19/24 @ 03:20 by Kenney Peña MD) Lumbar spine pain Left leg weakness Left leg numbness Fractures Encounter for wellness examination in adult Encounter for routine gynecological examination Allergies (~1999) Onychomycosis Surgical History Anesthesia [place] teeth removed (~2001) Family History Father Cancer Diabetes mellitus Multiple sclerosis Mother Cancer Grandfather Stroke Grandmother Diabetes mellitus Grandfather Cancer Grandmother Cancer Family/Other Asthma Allergies Social History Smoking Status: Never smoker second hand exposure: No alcohol intake: current (a couple a week) substance use type: marijuana (smoke, a few times a week) Smoking Status: Never smoker tobacco type: cigarettes alcohol intake frequency: 0-2 drinks per day Exam Narrative Exam Narrative: GENERAL: Well-developed patient, in mild distress. HEAD: Atraumatic. Normocephalic. EYES: Pupils equal round and reactive. Extraocular motions intact. No scleral icterus. No injection or drainage. ENT: Nose without bleeding, purulent drainage. Throat without erythema, tonsillar hypertrophy or exudate. Airway patent. NECK: Trachea midline. Non tender CARDIOVASCULAR: Regular rate and rhythm without murmurs, gallops, or rubs. RESPIRATORY: Clear to auscultation. Breath sounds equal bilaterally. No wheezes, rales, or rhonchi. GASTROINTESTINAL: Abdomen soft, non-tender, nondistended. EXTREMITIES: No edema or joint tenderness. BACK: Nontender without deformity or crepitance. No flank tenderness. NEURO: AOx3. Motor functions grossly nonfocal SKIN: No rash or erythema of visible areas Initial Vital Signs Initial Vital Signs: Vital Signs Temperature 98 F 07/18/24 17:08 Pulse Rate 67 07/18/24 17:08 Respiratory Rate 17 07/18/24 17:08 Blood Pressure 151/78 H 07/18/24 17:08 Pulse Oximetry 98 07/18/24 17:08 Oxygen Delivery Method Room Air 07/18/24 17:08 Course Orders Ordered: ED Orders 07/19/24 02:10 Urine Microscopic Stat Discontinued Medications Ketorolac Tromethamine (Ketorolac 30 Mg/Ml Vial) 15 mg IV NOW ONE Stop: 07/19/24 01:50 Last Admin: 07/19/24 03:01 Dose: Not Given Documented By: Ketorolac Tromethamine (Ketorolac 30 Mg/Ml Vial) 30 mg IM NOW ONE Stop: 07/19/24 02:51 Last Admin: 07/19/24 02:50 Dose: 30 mg Documented By: Methocarbamol (Methocarbamol 500 Mg Tablet) 500 mg PO NOW ONE Stop: 07/19/24 03:05 Last Admin: 07/19/24 03:14 Dose: 500 mg Documented By: Ondansetron HCl (Ondansetron 4 Mg/2 Ml Inj) 4 mg IV NOW PRN PRN Reason: Nausea And Vomiting Ondansetron HCl (Ondansetron 4 Mg Odt) 4 mg PO NOW PRN PRN Reason: Nausea And Vomiting Pantoprazole Sodium (Pantoprazole Dr 20 Mg Tablet) 20 mg PO NOW ONE Stop: 07/19/24 03:11 Last Admin: 07/19/24 03:14 Dose: 20 mg Documented By: AB Vital Signs Vital signs: Vital Signs - 8 hr 07/19/24 01:42 07/19/24 01:42 Pulse Rate 70 Blood Pressure 123/87 Pulse Oximetry 96 Oxygen Delivery Method Room Air MDM - Back Pain/Injury Lab Data Attestation: I reviewed the patient's lab results. Lab results narrative: White blood cell count 7000, hemoglobin 15.4, platelets adequate. Glucose 113. Electrolytes and carbon dioxide unremarkable. Normal renal function. Liver functions and lipase normal. Urine dip negative. Urine test negative. 07/18/24 22:20 07/18/24 22:20 Labs: Lab Results 07/18/24 07/19/24 Range/Units 22:20 02:10 WBC 7.0 (4.5-11.0) X10^3/uL RBC 4.98 (4.0-5.2) X10^6/uL Hgb 15.4 (12.0-16.0) g/dL Hct 44.3 (36-46) % MCV 88.9 (80-100) fL MCH 30.9 (26-34) PG MCHC 34.7 (30-36) % RDW 13.5 (11.6-14.8) % Plt Count 211 (150-400) X10^3/uL Neut % (Auto) 56.3 (50-75) % Lymph % (Auto) 33.1 (25-40) % [place] % (Auto) 5.9 (3-14) % Eos % (Auto) 3.8 (2-4) % Baso % (Auto) 0.9 (0-2) % Neut # (Auto) 3900 (4403-4017) /uL Lymph # (Auto) 2300 (9124-6947) /uL [place] # (Auto) 400 (0-900) /uL Eos # (Auto) 300 (0-450) /uL Baso # (Auto) 100 (0-100) /uL Sodium 141 (137-145) mmol/L Potassium 3.9 (3.4-5.1) mmol/L Chloride 104 (98-107) mmol/L Carbon Dioxide 26 (22-32) mmol/L BUN 14 (7-17) mg/dL Creatinine 0.77 (0.52-1.04) mg/dL Estimated GFR > 60 (>60) mL/min BUN/Creatinine Ratio 18.2 (6-22) Glucose 113 H (70-100) mg/dL Calcium 9.6 (8.4-10.2) mg/dL Total Bilirubin 0.7 (0.2-1.3) mg/dL AST 33 (14-36) IU/L ALT 53 H (<35) IU/L Alkaline Phosphatase 60 (38-126) U/L Total Protein 8.1 (6.3-8.2) g/dL Albumin 5.0 (3.5-5.0) g/dL Globulin 3.1 (1.7-4.1) g/dL Albumin/Globulin Ratio 1.6 (1.0-2.8) Lipase 60 (23-300) U/L Urine RBC 0-1/hpf (0-5/HPF) Urine WBC 0-1/hpf (0-5/HPF) Ur Squamous Epith Cells 5-10 /hpf H (0-5/HPF) Amorphous Sediment 2+ Urine Bacteria Occasional (0-1) (None) Urine Mucus 3+ H (Negative) Ur Culture Indicated? Cult not indicated Vol Urine Centrifuged 10ml (spun) Point of Care Testing Test Results Negative Urine Dip Bedside Urine Glucose Negative Bedside Urine Bilirubin - Negative Bedside Urine Ketone - Negative Urine Specific [place] [employer] 1.025 Bedside Urine Occult Blood - Negative Bedside Urine pH 6.0 Bedside Urine Protein +/- 15 Bedside Urine Urobilinogen - Negative Bedside Urine Nitrite - Negative Bedside Urine Leukocytes +/- 15 Esterase MDM Narrative Medical decision making narrative: 39-year-old female with ongoing left upper abdominal pain, CT scan abdomen and pelvis negative on 06/24/2024, has left lower abdominal discomfort with pain to her left leg. Lumbar spine MRI ordered, she is to be worked in today for imaging. Screening labs negative, test negative, urinalysis negative, no leukocytosis, LFTs and lipase normal. Lumbar spine MRI. Impressions: ?No acute fracture. No traumatic subluxation. No suspicious areas of enhancement. Cliq-oz-tjpohfss areas of spondylotic changes described above, worse at L4-L5. See radiology report. Copy of the of the lumbar spine report given to the patient, who seemed upset at the lack of any definitive diagnosis. Copy of her recent 05/2024 abdomen and pelvis imaging report also provided. Regarding her back pain we could consider NSAIDs and maybe steroids, however if her left upper quadrant abdominal pain represents gastritis this could worsen. She would like to hold off on steroids for now. She would be interested in a trial of muscle relaxant for her low back pain, dose of Robaxin given, prescription sent to her pharmacy. Regarding her left upper quadrant abdominal discomfort, she does not seem to be on any NSAID, consider omeprazole, prescription sent to her pharmacy. Follow up with PCP advised, consider upper endoscopy, consider lower endoscopy. Home with family. Return precautions discussed. Discharge Plan Departure Patient Disposition: Home Clinical Impression: Lumbar spine pain, Left leg pain, Left upper quadrant abdominal pain Activity Restrictions/Additional Instructions: Ms Stevens, Ongoing left upper quadrant abdominal pain of unclear cause, left low back and left leg pain of unclear cause. You had recent evaluation with labs and CT scan abdomen and pelvis on 06/24/2024 that did not show any acute changes at that time on imaging. You had tried various stool softening agent regimens without relief. Now with left lower back discomfort and some pain to the left leg, concerning for possible radiculopathy from your spine. MRI of the lumbar spine was actually performed today, and showed lkvx-ng-rnpygjew spondylotic changes worse at L4-L5. Usually wunc-nq-kdfjhhvi changes are not severe enough to have interventions from Neurosurgery. Sometimes epidural spinal injections can be helpful however, if you consult with pain specialist who performed this, if they believe this consultation is indicated, though you likely need referral from your primary care provider for this service. Consider trial of muscle relaxant to see if this is helpful for you for your back and leg pains. We discussed use of steroids, which might be helpful for back pains, but could worsen left upper quadrant abdominal pain if you happen to have gastritis that is later identified on upper endoscopy. We discussed use of antacids which could be helpful for your left upper quadrant abdominal pain if you are fine ultimately on endoscopy to have gastritis or gastric ulcer. We gave a dose of Protonix here in the emergency department by mouth. Prescription for omeprazole to take daily while awaiting further workup as an outpatient. Follow up with your regular doctor Sunday for further referrals and evaluations. Hopefully the muscle relaxant in the omeprazole antacid regimen will be helping some of the symptoms. You might ultimately need upper endoscopy of the stomach and esophagus region, and perhaps even later lower endoscopy of the colon, if no causes or sort it out. Please do not drive vehicle or operate machinery while you are taking Robaxin/methocarbamol muscle relaxant, in case it makes you too drowsy, at risk of hurting herself or others. Return earlier to this/nearest emergency department for any change worsening symptoms or any concerns prior. Thank you for allowing our team to evaluate you today. Prescriptions: New omeprazole 20 mg capsule,delayed release(DR/EC) 20 mg PO DAILY 30 Days Qty: 30 0RF methocarbamol 500 mg tablet 500 mg PO TID 7 Days Qty: 21 0RF No Action doxycycline hyclate 100 mg capsule 100 mg PO BID Qty: 14 0RF gabapentin 300 mg capsule 300 mg PO TID Qty: 30 0RF ibuprofen 200 mg tablet 600 mg PO BID PRN Referrals: Lexii Winchester MD [Primary Care Provider] - Stand Alone Forms: Patient Portal/API/Survey
--- NOTE | 2024-07-19 01:52 | PC.NURSE ---
Pt states that he PCP sent her to ER for [place] MRI due to waiting too long as an outpatient. Pt states that her symptoms have worsened over the last month.
[2024-07-19 02:30] VITALS: PULSE 51; O2SAT 96
[2024-07-19] MEDS: KETOROLAC 30 MG/ML VIAL IM (02:50)
[2024-07-19 03:03] VITALS: PULSE 89; O2SAT 99
[2024-07-19] MEDS: PANTOPRAZOLE DR 20 MG TABLET PO (03:14)
[2024-07-19] MEDS: methocarbamoL 500 MG TABLET PO (03:14)
[2024-07-19 03:15] LABS: Amorphous Sediment Urine 2+; Bacteria Urine Occasional (0-1); Culture Indicated Urine Cult Not Indicated; Mucus Urine 3+ (Negative); RBC Urine 0-1/HPF (0-5/HPF); Squamous Epithelial Cell Urine 5-10 /HPF (0-5/HPF); Urine Volume 10mL (spun); WBC Urine 0-1/HPF (0-5/HPF)
== END 2024-07-19 03:37 | disposition home or self-care (01) ==
PROVIDERS: Emergency Medicine; Emergency Provider Emergency Medicine; PCP Family Medicine
DX: R10.12 Left upper quadrant pain (principal); M54.50 Low back pain, unspecified; M79.662 Pain in left lower leg
CPT/HCPCS: 36415; 72158; 80053; 81003; 81015; 81025; 83690; 85025; 96372; 99283; 99284; A9579; J1885

== ENCOUNTER → 2024-08-01 18:40 | Outpatient (CLI) | payer OTHER, SELFPAY ==
--- NOTE | 2024-08-01 18:42 | DI.MRI.S_ITS ---
PROCEDURE: MR HEAD/BRAIN WO/W CON INDICATIONS: eval for Multiple Sclerosis r/t rapid neuro changes/weakness TECHNIQUE: Noncontrast sagittal and axial FLAIR, axial and coronal T2 fast spin echo, axial VIBE, axial gradient echo, axial diffusion and ADC through the brain. After the administration of contrast, axial and coronal and sagittal VIBE with fat saturation through the brain. COMPARISON: None. FINDINGS: Image quality: Excellent. CSF spaces: Ventricles are normal in size and shape. Basal cisterns are patent. No extra-axial fluid collections. Brain: No intracranial bleeds or mass effects. Benjamin-white matter interface appears intact. Multiple subcentimeter T2 and FLAIR hyperintense signal areas are seen scattered in bilateral parietal occipital periventricular white matter as well as left cerebellum. No abnormal intracranial enhancement. Diffusion weighted images show no acute ischemic insults. Brainstem appears normal. Normal intravascular flow voids are present. Skull and face: Calvarial marrow signal is normal. Orbits appear normal. Sinuses: Sinuses and mastoids are clear. IMPRESSION: 1. Finding is concerning for a few small demyelinating plaques scattered in bilateral parietal occipital periventricular white matter as well as left cerebellum. No area of abnormal contrast enhancement is noted to suggest actively demyelinating lesions. 3. No evidence of acute infarctions. No intracranial bleed, midline shift or mass effect. Dictated by: Pardeep Madden M.D. on 08/01/2024 at 21:01 Approved by: Pardeep Madden M.D. on 08/01/2024 at 21:06
--- NOTE | 2024-08-01 18:56 | DI.MRI.S_ITS ---
PROCEDURE: MR THORACIC SPINE WO/W CON INDICATIONS: eval for Multiple Sclerosis r/t rapid neuro changes/weakness TECHNIQUE: Noncontrast sagittal T1 spin echo and T2 fast spin echo, sagittal STIR, axial T1 and T2 fast spin echo through the thoracic spine. After the administration of contrast, axial and sagittal T1 spin echo with fat saturation through the thoracic spine. COMPARISON: None. FINDINGS: Image quality: Excellent. Alignment and curvature: There is normal bony alignment. Marrow: Marrow is of normal overall signal. No acute vertebral body compression fractures. Spinal cord: Visualized spinal cord is of normal signal and size, without abnormal enhancement. Paraspinous soft tissues: No paravertebral masses or abnormal enhancement. Miscellaneous: Central canal and foramina appear widely patent at all scanned levels. IMPRESSION: 1. No marrow edema. No compression fracture or spondylolisthesis in thoracic spine. 2. No signal abnormalities are noted within thoracic spinal cord. No area of abnormal contrast enhancement to suggest actively demyelinating lesions within the thoracic spinal cord. 3. No significant central canal stenosis or neural foraminal narrowing. No area of abnormal paraspinous soft tissue enhancement. Dictated by: Pardeep Madden M.D. on 08/01/2024 at 21:06 Approved by: Pardeep Madden M.D. on 08/01/2024 at 21:08
--- NOTE | 2024-08-01 18:56 | DI.MRI.S_ITS ---
PROCEDURE: MR CERVICAL SPINE WO/W CON INDICATIONS: eval for Multiple Sclerosis r/t rapid neuro changes/weakness TECHNIQUE: Noncontrast sagittal T1 spin echo and T2 fast spin echo, sagittal STIR, sagittal PD fast spin echo, foraminal oblique sagittal T2 fast spin echo, axial gradient echo or T2 fast spin echo through the cervical spine. After the administration of contrast, sagittal and axial T1 spin echo with fat saturation through the cervical spine. COMPARISON: None. FINDINGS: Image quality: Excellent. Alignment and curvature: There is normal bony alignment. Marrow: There is no marrow edema. No acute vertebral body compression fracture. Spinal cord: 1.3 x 0.8 x 1.9 cm T2 hyperintense lesion within central portion of cervical spinal cord at C6-7 level is seen and show rim enhancement. No other area of abnormal cervical spinal cord signal or abnormal intramedullary enhancement is seen. No cerebellar tonsillar herniation. Paraspinous soft tissues: No paravertebral masses or suspicious enhancement. C2-C3: Normal appearance. C3-C4: Normal appearance. C4-C5: Normal appearance. C5-C6: Loss of disc height and disc desiccation is seen. Broad-based disc bulge and superimposed central to left-sided disc herniation is seen causing moderate central canal stenosis and severe left-sided neural foraminal narrowing. There is likely impingement of exiting left C6 nerve root. C6-C7: Central to left-sided disc bulge causing mild central canal stenosis and left-sided neural foraminal narrowing. C7-T1: Normal appearance. IMPRESSION: 1. 1.3 x 0.8 x 1.9 cm T2 hyperintense lesion within central cervical spinal cord at C6-7 level and show rim enhancement most consistent with active demyelinating lesion secondary to MS. No other area of abnormal cord signal or enhancement. 2. No marrow edema. No acute compression fracture or abnormal intraosseous enhancement. 3. Spondylitic changes are noted at C5-6 and C6-7 levels causing various degrees of central canal stenosis and left-sided neural foraminal narrowing as described above. Dictated by: Pardeep Madden M.D. on 08/01/2024 at 21:08 Approved by: Pardeep Madden M.D. on 08/01/2024 at 21:13
== END ==
LOC: MRI 18:40
PROVIDERS: PCP Family Medicine; Referring Provider Family Medicine; Visit Provider Family Medicine
DX: G95.9 Disease of spinal cord, unspecified (principal); M47.812 Spondylosis without myelopathy or radiculopathy, cervical region; M50.322 Other cervical disc degeneration at C5-C6 level; M48.02 Spinal stenosis, cervical region; R20.0 Anesthesia of skin; R29.898 Other symptoms and signs involving the musculoskeletal system; R29.90 Unspecified symptoms and signs involving the nervous system; Z82.0 Family history of epilepsy and other diseases of the nervous system
CPT/HCPCS: 70553; 72156; 72157; A9579